=== PATIENT | female | born 1955 | race Caucasian/White ===

== ENCOUNTER → 2017-07-25 16:20 | Outpatient (CLI) | payer SELFPAY ==
[2017-07-29 08:30] LABS: HPV APTIMA, High Risk Negative (Negative)
== END ==
PROVIDERS: Visit Provider Obstetrics & Gynecology
DX: Z12.4 Encounter for screening for malignant neoplasm of cervix (principal)
CPT/HCPCS: 88175; G0145

== ENCOUNTER → 2018-08-01 10:56 | Outpatient (CLI) | payer SELFPAY ==
[2018-08-03 14:17] LABS: HPV APTIMA, High Risk Negative (Negative)
== END ==
PROVIDERS: Referring Provider Obstetrics & Gynecology; Visit Provider Obstetrics & Gynecology
DX: Z12.4 Encounter for screening for malignant neoplasm of cervix (principal)
CPT/HCPCS: 88175; G0145

== ENCOUNTER 2019-05-25 00:52 | Observation (INO) | payer OTHER, SELFPAY ==
[2019-05-25] VITALS (7 sets, daily range): BP systolic 125–140; BP diastolic 68–75; PULSE 50–73; RESP 16–18; TEMP 36.5–36.8; O2SAT 94–98; BMI 29.3; BMI 29.4
--- NOTE | 2019-05-25 00:32 | HP.PCM_ITS ---
Problem List (1) HTN (hypertension) Status: Chronic (2) Palpitations Status: Chronic (3) Hyperlipidemia Status: Chronic (4) Stroke-like symptoms Status: Acute History of Present Illness Date of Admission: 05/25/19 Chief Complaint: numbness The patient is a 63 year old F with a significant history of HTN; HLD; Palpitations who presented at [facility] because of numbness of the lips and tongue. Also she had blurry vision. She denies any weakness or dysphagia. At the time of evaluation her blurry had disappeared. She did not have numbness of her lips. However she had some mild numbness of her tongue. Reportedly her symptoms started after eating seafood (shrimp and fish)which she has ate at other times with no symptoms. Her initial systolic blood pressure at [facility] was 180. Subsequent blood pressure was 171 and 160. Patient was transferred from [facility] emergency department to our hospital because an MRI cannot be done next day (Monday) at [facility]. And patient preferred our hospital for transfer. Past Medical History Past Medical History (Chronic Problems): Chronic Problems HTN (hypertension) (Chronic) Palpitations (Chronic) Hyperlipidemia (Chronic) Allergies No Known Allergies Allergy (Verified 05/25/19 00:29) Home Medications: Ambulatory Orders Medication Instructions Recorded Atenolol 25 mg PO DAILY 05/25/19 Levothyroxine [Synthroid] 100 mcg PO DAILY 05/25/19 Surgical History: - - Lower back surgery with hardware. Lives: With Family Smoking Status: Former smoker Alcohol: None - *Family History Maternal History Items: Heart Disease - Her mother developed congestive heart failure in her old age. Paternal History Items: Heart Disease Review of Systems Constitutional: Denies: Chills, Fever, Weight Change HEENT: Denies: Head Aches, Sinus Congestion, Sinus Drainage Cardiovascular: Denies: Chest Pain, Palpitations Respiratory: Denies: Cough, Shortness of breath at rest, Sputum production Gastrointestinal: Denies: Abdominal Pain, Nausea, Vomiting Genitourinary: Denies: Dysuria Musculoskeletal: Denies: Joint Pain, Joint Tenderness Skin: Denies: Rash, Wounds Neurological: Reports: Blurred vision, Numbness. Denies: Focal weakness, Tingling Psychiatric: Denies: Anxiety, Depression, Homicidal Ideations, Suicidal Ideations Hematologic/ Lymphatic: Denies: Easy Bruising, Easy Bleeding VTE Information - Inpt Only VTE Present on Admission: No VTE Mechan Device Prophylaxis: None VTE Pharm Prophylaxis ordered?: Yes Patient Problems: Active and Suspected Problems Numbness (Acute) Stroke-like symptoms (Acute) - Physical Exam General: Alert, Oriented x3, Cooperative HEENT: Atraumatic, PERRLA, EOMI, Normocephalic Neck: Supple, No JVD, Negative Carotid Bruits Lungs: Clear to auscultation, Normal air movement Cardiovascular: Regular rate, Normal S1, Normal S2, No murmurs Abdomen: Bowel Sounds Present, Soft, Non Tender Extremities: No edema, Capillary Refill Less than 3 Seconds Skin: No rashes, No breakdown Musculoskeletal: No Tenderness to Palpation of Joints or Extremities Neurological: Cranial nerves II-XII grossly intact Psych/Mental Status: Normal Affect, Appropriate Assessment/Plan All Active Problems Numbness (Acute) Stroke-like symptoms (Acute) The patient is a 63 year old F with a significant history of HTN; HLD; Palpitations who presented at [facility] because of numbness on the lips and tongue; and blurry vision continue strokelike symptoms. Stroke-like Frequent NINDS NIH Scale CT of the head at [facility] was unremarkable -Check Hba1c, Lipid level Physical therapy, occupational therapy and speech therapy to work with patient. N.p.o. until bedside swallow eval. Daily aspirin ordered. High intensity statin Permissive hypertension. Control blood pressure with labetalol for systolic blood pressure of more than 220 or diastolic blood pressure of more than 120. 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 CTA head and neck per stroke protocol. IV hydration in the setting of contrast of CT. Echocardiogram ordered. Hypertension Blood pressure was not within goal. At home patient takes home remedies. Permissive hypertension as above. Trend blood pressures. Palpitations Patient take atenolol at home PRN for palpitations. Hyperlipidemia Not on any home medication. Lipitor started. Hypothyroidism s/p radioactive iodine therapy for hyperthyroidism Synthroid continued DVT prophylaxis Subcutaneous Lovenox. Code Visit OBSV E&M: 49026 Initial observation care L2
--- NOTE | 2019-05-25 01:30 | CT_ITS ---
We are attempting to reach an attending provider to discuss findings. An addendum with communication details will be sent when the communication is complete. STUDY: CTA HEAD AND NECK WITH CONTRAST REASON FOR EXAM: Female, 63 years old. Slurred speech and double vision. RADIATION DOSAGE (If Supplied By Facility): CTDIvol = ( 28.46 ) mGy, DLP = ( 1546.83 ) mGycm TECHNIQUE: CT angiography was performed with a multi-detector CT scanner. Data acquisition was obtained from the skull base through the vertex following intravenous administration of 100 ML ISOVUE 370.. MIP images were reconstructed from the axial data set. Post-processing of the angiographic images was performed, with multiplanar reformation and 3D reconstruction. Individualized dose optimization techniques were used for this CT. COMPARISON: No relevant priors. FINDINGS: Normal bilateral petrous carotid arteries. Normal right cavernous carotid artery with a normal supraclinoid bifurcation. Normal left cavernous carotid artery with a normal supraclinoid bifurcation. Normal right A1 segments of the anterior cerebral artery. Normal left A1 segments of the anterior cerebral artery. Normal intact anterior communicating artery (ACOM). Normal bilateral A2 segments of the anterior cerebral arteries. Normal right M1 and M2 segments of the middle cerebral arteries, with a normal M1 bifurcation. Normal left M1 and M2 segments of the middle cerebral arteries, with a normal M1 bifurcation. Normal right posterior communicating artery (PCOM). Normal left posterior communicating artery (PCOM). Normal bilateral vertebral arteries. Normal basilar artery with a normal basilar bifurcation. The visualized bilateral superior cerebellar (SCA) arteries are normal. Normal bilateral P1, P2 and visualized P3 segments of the posterior cerebral arteries. There is no demonstrated aneurysm of the [place] of [place]. There is no demonstrated abnormality of the visualized brain. AORTIC ARCH: Normal visualized aortic arch. Normal origins of the brachiocephalic, left common carotid, and left subclavian arteries. RIGHT CAROTID ARTERIES: Normal right common carotid artery (CCA). Normal right common carotid bulb. Normal origin of the right internal carotid (ICA) artery without a hemodynamically significant stenosis. Normal visualized cervical portion of the right internal carotid artery. Normal origin of the right external carotid artery (ECA). LEFT CAROTID ARTERIES: Normal left common carotid artery (CCA). Normal left common carotid bulb. Normal origin of the left internal carotid (ICA) artery without a hemodynamically significant stenosis. Normal visualized cervical portion of the left internal carotid artery. Normal origin of the left external carotid artery (ECA). VERTEBRAL ARTERIES: Normal bilateral vertebral arteries. CT/CTA Head AND Neck W/ Contrast IMPRESSION: Normal CTA Head and neck with contrast. Electronically Signed: Blayne Rubalcava MD at 2:22 EST Tel , Service support ,
--- NOTE | 2019-05-25 01:30 | MRI_ITS ---
STUDY: MRI BRAIN WITHOUT CONTRAST REASON FOR EXAM: Female, 63 years old. TIA/CVA. Numbness of lips and tongue, blurred vision, symptoms mostly resolved now. TECHNIQUE: Standardized multiplanar fat and water weighted pulse sequences were obtained. COMPARISON: CTA head and neck with contrast 05/25/2019. FINDINGS: No restricted diffusion to suspect acute or subacute ischemic infarct. No focal signal of the mouth is throughout the brain parenchyma in all of the pulse sequences. Normal size of the ventricles and extra-axial spaces for the patient''s age. Normal white matter tracts of the supratentorial brain. Normal bilateral basal ganglia. Normal thalami. There is no extra-axial fluid accumulation. Normal flow voids within the major intracranial circulation suggesting patency by spin echo criteria. Normal sella turcica, pituitary gland, infundibular stalk, optic chiasm and hypothalamus. Normal tectal plate and pineal gland. Normal midbrain, manpreet and medulla. Normal cerebellum. Normal basal cisterns. Normal bilateral temporal bones. Normal bilateral internal auditory canals. No demonstrated orbital abnormality, within the constraints of a routine brain study. Mucosal thickening in the right sphenoid sinus. Normal calvarium and skull base. Normal visualized soft tissue structures. Normal visualized upper cervical spine. MRI/Brain without Contrast IMPRESSION: Normal unenhanced MRI of the brain. Electronically Signed: Tyler Vázquez MD at 10:21 EST , Service support ,
--- NOTE | 2019-05-25 01:30 | ECHOD_ITS ---
Reason For Study: TIA/CVA Procedure This was a 2D Doppler, Color Flow transthoracic echocardiogram. Exam performed portable in patient room. Left Ventricle Normal size and thickness. The estimated ejection fraction is 65 %. Normal diastology for age. No regional wall motion abnormalities noted. Right Ventricle Normal RV size. Normal systolic function. Atria Normal left atrium. Normal right atrium. No doppler evidence for ASD. Bubble contrast study negative for right to left interatrial shunt. Mitral Valve There is no mitral valve stenosis. Trivial mitral valve insufficiency. Tricuspid Valve There is no tricuspid stenosis. Trivial tricuspid valve insufficiency. Normal pulmonary artery pressure. Aortic Valve Trisinus/trileaflet aortic valve. There is no aortic stenosis. No aortic valve insufficiency. Pulmonic Valve There is no pulmonic valvular stenosis. No pulmonic valve insufficiency. Great Vessels Normal aortic root. Pericardium/Pleural No pericardial effusion. Medication Performed a rapid injection of agitated mix of 9 cc saline and 1cc air to assess for atrial septal defect. MMode/2D Measurements & Calculations LVIDd: 4.6 cm IVSd: 0.97 cm Ao root diam: 2.8 cm LVIDs: 2.6 cm LVPWd: 0.87 cm RVDd: 2.5 cm FS: 44.4 % LAV(MOD-bp): 37.2 ml LVAd ap4: 20.3 cm2 SV(MOD-sp4): 35.2 ml LAV(MOD-bp) Indexed: 21.3 ml/m2 EDV(MOD-sp4): 54.3 ml LAV(MOD-sp2): 49.8 ml EDV(sp4-el): 54.2 ml LAV(MOD-sp4): 27.6 ml LVAs ap4: 10.4 cm2 ESV(MOD-sp4): 19.1 ml ESV(sp4-el): 18.3 ml EF(MOD-sp4): 64.9 % EF(sp4-el): 66.1 % SV(sp4-el): 35.8 ml LA A4 area: 13.1 cm2 LA dimension(2D): 3.4 cm RA A4 area: 14.9 cm2 Doppler Measurements & Calculations MV E max baljit: 75.5 cm/sec Lat Peak E' Baljit: 9.6 cm/sec Med Peak E' Baljit: 9.6 cm/sec MV A max baljit: 84.1 cm/sec E/E' lat: 7.9 E/E' med: 7.9 MV E/A: 0.90 Ao V2 max: 148.7 cm/sec LV V1 max: 109.5 cm/sec PA V2 max: 76.4 cm/sec Ao max P.8 mmHg LV V1 max P.8 mmHg Ao V2 mean: 102.9 cm/sec Ao mean P.6 mmHg Ao V2 VTI: 33.2 cm TR max baljit: 233.4 cm/sec TR max P.8 mmHg Interpretation Summary The estimated ejection fraction is 65 %. Normal diastology for age. Bubble contrast study negative for right to left interatrial shunt. Trivial mitral valve insufficiency. Trivial tricuspid valve insufficiency. Ordering Physician: Jaquan Rangel Referring Physician: Jaquan Rangel Performed By: Nandini Correia, RDCS, RVT
[2019-05-25] MEDS: 0.9% Normal Saline 1,000 ML 75 ML IV (02:01)
[2019-05-25] MEDS: 0.9% Saline Lock 10 ML Syringe IV (02:02)
[2019-05-25] MEDS: Aspirin 81 MG TAB.CHEW PO (02:11)
[2019-05-25] MEDS: Atorvastatin Calcium 80 MG Tablet PO (02:12)
[2019-05-25 02:45] LABS: Anion Gap 5 (5-15); BUN 14 mg/dL (7-18); BUN/Creat Ratio 17.6 RATIO (10-20); Calcium,Total 8.2 mg/dL (8.5-10.1); Chloride 113 mmol/L (98-107); EST Glomerular Filtration Rate 78 mL/min (>60); Est Glom Filt Rate - Afr Amer 94 mL/min (>60); Estimated Creatinine Clearance 58.41 ml/min; Glucose 94 mg/dL (74-106); Potassium 3.6 mmol/L (3.5-5.1); Sodium Level 142 mmol/L (136-145)
[2019-05-25 02:48] LABS: Hemoglobin A1c 5.7 % (4.2-6.3)
[2019-05-25] MEDS: Levothyroxine 100 MCG Tablet PO (05:13)
[2019-05-25 05:58] LABS: Cholesterol 258 mg/dL (200); High Density Lipoprotein 60 mg/dL; Triglycerides 152 mg/dL; Very Low Density Lipoprotein 30 mg/dL (5-40)
--- NOTE | 2019-05-25 10:43 | DCINST_ITS ---
- Discharge Diagnoses Current Active Problems: Current Active and Chronic Problems Numbness (Acute) HTN (hypertension) (Chronic) Palpitations (Chronic) Hyperlipidemia (Chronic) Stroke-like symptoms (Acute) Reason(s) for Visit for Discharge Instructions: Numbness, tingling You will use the following diet at home:: Cardiac Your food should be the consistency of: Regular Your liquids should be the consistency of: Regular/Thin Discharge Activity: Return to Normal Activity Instructions: What Is a TIA?, Transient Ischemic Attack (TIA), Cholesterol Medications Additional Instructions: Continue to take all your medications as prescribed. Follow a low salt, low fat diet. Follow up with your primary care doctor within 2 weeks. Allergies/Adverse Reactions: Allergies No Known Allergies Allergy (Verified 05/25/19 00:29) Medications to take at Discharge Acetaminophen [Tylenol Tablet] 650 mg PO Q6H PRN PRN tab 05/25/19 Aspirin [Aspirin, Baby] 81 mg PO DAILY@0800 30 Days #30 tab.chew 05/25/19 Atenolol 25 mg PO DAILY 05/25/19 Atorvastatin Calcium [Lipitor] 80 mg PO QHS 30 Days #30 tab 05/25/19 Levothyroxine [Synthroid] 100 mcg PO DAILY 05/25/19 The following prescriptions were given: Aspirin [Aspirin, Baby] 81 mg PO DAILY@0800 30 Days #30 tab.chew [email or web address] Atorvastatin Calcium [Lipitor] 80 mg PO QHS 30 Days #30 tab Transmission Status: Sent to [facility] Test Results: Test results from this visit will be discussed in further detail at your follow- up appointment, if applicable. Proposed Discharge Date: 05/25/19
--- NOTE | 2019-05-25 10:46 | DS.PCM_ITS ---
Discharge Date and Diagnosis Date of Admission: 05/25/19 Date of Discharge: 05/25/19 - Primary Discharge Diagnosis Active and Suspected Problems TIA Hyperlipidemia - Secondary Discharge Diagnosis Chronic Problems HTN (hypertension) (Chronic) Palpitations (Chronic) Hyperlipidemia (Chronic) Hospital Course and Treatment Imaging Results: Clinical Impression(s) from Imaging Studies Brain MRI 05/25/19 01:30 IMPRESSION: Normal unenhanced MRI of the brain. Electronically Signed: Tyler Vázquez MD at 10:21 EST , Service support , Head/Neck CTA 05/25/19 01:30 IMPRESSION: Normal CTA Head and neck with contrast. Electronically Signed: Blayne Rubalcava MD at 2:22 EST Tel , Service support , ADDENDUM: 05/25/19 0230 IMPRESSION: Normal CTA Head and neck with contrast. N.B. : The above information has been verbally conveyed by Blayne Rubalcava MD to Wilfredo Rangel MD, on 05/25/2019 02:23:37 (ET). Electronically Signed: Blayne Rubalcava MD at 2:22 EST Tel , Service support , ADDENDUM: 05/25/19 0253 IMPRESSION: Normal CTA Head and neck with contrast. N.B. : The above information has been verbally conveyed by Blayne Rubalcava MD to Wilfredo Rangel MD, on 05/25/2019 02:23:37 (ET). Electronically Signed: Blayne Rubalcava MD at 2:22 EST Tel , Service support , None Operations: None Procedures: 2-D Echocardiogram Summary of Care Provided: The patient is a 63 year old F with medical history of hypertension who comes in with complaints of tingling and numbness of her lips and tongue as well as blurred vision. She was seen in the [facility] ED and transferred to [facility]. Her symptoms were most resolved at the time of admission. Her vitals were stable on admission. CTA of the head and neck was negative for acute occlusion. MRI of the head showed no acute infarct. Her total cholesterol was 258, LDL 168, HDL was 60, VLDL was 30. Telemetry shows normal sinus rhythm. Troponins were negative. HbA1c was 5.7. 2D echo did not show any valvular abnormality, EF was normal. She was discharged home on aspirin and statin and educated on low-fat, low-salt diet. She will follow-up with her primary care doctor within 1 to 2 weeks. Subjective: On the day of discharge, patient was seen and examined. Denied any new complaint. She has very mild tingling numbness in the tip of the tongue. No acute events overnight. - Physical Exam Vitals/I&O's: Vital Signs Temp Pulse Resp BP Pulse Ox 98.2 F 57 L 16 140/68 H 98 05/25/19 08:36 05/25/19 08:36 05/25/19 08:36 05/25/19 08:36 05/25/19 08:36 Oxygen Delivery Method Room Air Weight: 72.8 kg Body Mass Index (BMI) 29.3 Intake and Output for Last 24 Hours 05/23/19 05/24/19 05/25/19 23:59 23:59 23:59 Intake Total 872.5 / 872.5 Balance 872.5 / 872.5 General: Alert, Oriented x3, Cooperative, No apparent distress HEENT: Atraumatic, PERRLA, EOMI, Normocephalic Oral: Moist Mucosa Neck: Supple Lungs: Clear to auscultation, Normal air movement Cardiovascular: Regular rate, Regular Rhythm, Normal S1, Normal S2, No murmurs Abdomen: Bowel Sounds Present, Soft, Non Tender, Non-Distended, No Hepato- splenomegaly Extremities: No edema Skin: No rashes, No breakdown Musculoskeletal: No Tenderness to Palpation of Joints or Extremities Lymphatic: No Cervical, Supraclavicular, or Inguinal Adenopathy Neurological: Cranial nerves II-XII grossly intact, Neuro grossly intact Psych/Mental Status: Normal Affect, Appropriate Laboratory Results 05/25/19 02:09: Sodium 142, Potassium 3.6, Chloride 113 H, Carbon Dioxide 24.0, Anion Gap 5, BUN 14, Creatinine 0.80, Estim Creat Clear Calc 58.41, Est GFR (MDRD) Af Amer 94, Est GFR (MDRD) Non-Af 78, BUN/Creatinine Ratio 17.6, Glucose 94, Calcium 8.2 L, Troponin I < 0.015 05/25/19 02:09: Hemoglobin A1c 5.7 05/25/19 05:24: Triglycerides 152, Cholesterol 258 H, LDL Cholesterol 168 H, VLDL Cholesterol 30, HDL Cholesterol 60 05/25/19 05:24: Troponin I < 0.015 05/25/19 07:50: Troponin I < 0.015 Current Medications Acetaminophen (Tylenol) 650 mg PO Q6H PRN PRN PRN Reason: Pain Score 1-10/Temp > 100.7 F Aspirin (Aspirin, Baby) 81 mg PO DAILY@0800 COUNT INCLUDES THE [facility] Last Admin: 05/25/19 02:11 Dose: 81 mg Documented by: Atenolol (Tenormin (Beta [place])) 25 mg PO DAILY COUNT INCLUDES THE [facility] Atorvastatin Calcium (Lipitor) 80 mg PO QHS COUNT INCLUDES THE [facility] Last Admin: 05/25/19 02:12 Dose: 80 mg Documented by: Enoxaparin Sodium (Lovenox) 40 mg SC DAILY COUNT INCLUDES THE [facility] Last Admin: 05/25/19 10:42 Dose: Not Given Documented by: Glucagon () 1 mg IM .X1 PRN PRN Reason: Hypoglycemia Sodium Chloride () 250 mls @ 15 mls/hr IV .[id number] PRN PRN Reason: Saline Flush Sodium Chloride () 250 mls @ 15 mls/hr IV .[id number] PRN PRN Reason: Additional IVPB Infusion Sodium Chloride () 1,000 mls @ 75 mls/hr IV .[id number] COUNT INCLUDES THE [facility] Stop: 05/25/19 14:49 Last Infusion: 05/25/19 10:43 Dose: Infused Documented by: Dextrose (Dextrose 10%-Water) 250 mls @ 999 mls/hr IV .Q16M PRN; Protocol PRN Reason: HYPOGLYCEMIA Labetalol HCl (Trandate) 10 mg IV Q10M PRN PRN Reason: MAINTAIN BP < 220/120 Stop: 05/26/19 01:31 Levothyroxine Sodium (Synthroid) 100 mcg PO DAILY@0600 COUNT INCLUDES THE [facility] Last Admin: 05/25/19 05:13 Dose: 100 mcg Documented by: Melatonin (Melatonin) 3 mg PO QHS PRN PRN PRN Reason: INSOMNIA Ondansetron HCl (Zofran) 4 mg IV Q8H PRN PRN PRN Reason: NAUSEA/VOMITING Sodium Chloride () 10 - 40 ml IV UD PRN PRN Reason: SALINE FLUSH Last Admin: 05/25/19 02:02 Dose: 10 ml Documented by: Discharge Diet: Low fat/ Low Cholesterol, 2000 mg Sodium Diet Discharge Activity: Return to Normal Activity Home Medications: Medications to take at Discharge Acetaminophen [Tylenol Tablet] 650 mg PO Q6H PRN PRN tab 05/25/19 Aspirin [Aspirin, Baby] 81 mg PO DAILY@0800 30 Days #30 tab.chew 05/25/19 Atenolol 25 mg PO DAILY 05/25/19 Atorvastatin Calcium [Lipitor] 80 mg PO QHS 30 Days #30 tab 05/25/19 Levothyroxine [Synthroid] 100 mcg PO DAILY 05/25/19 Following Prescrptions Were Given to Patient: Aspirin [Aspirin, Baby] 81 mg PO DAILY@0800 30 Days #30 tab.chew [facility] Atorvastatin Calcium [Lipitor] 80 mg PO QHS 30 Days #30 tab Transmission Status: Received by [facility] Patient Instructions: Cholesterol Medications, What Is a TIA?, Transient Ischemic Attack (TIA) Disposition: Home Minutes spent on discharge:: 40 Patient Condition:: Stable Medical Necessity - Tobacco Use Smoking Status: Former smoker Tobacco Use: Non-smoker Meaningful Use Info Meaningful Use Diagnoses (Choose all that apply): None applicable Code Visit OBSV E&M: 86749 Observation care discharge
[2019-05-25] MEDS: Atenolol 25 MG Tablet PO (10:51)
== END 2019-05-25 10:37 | disposition home or self-care (01) ==
PROVIDERS: Admitting Provider Hospitalist; Referring Provider Hospitalist; Visit Provider Internal Medicine
DX: G45.9 Transient cerebral ischemic attack, unspecified (principal); E78.5 Hyperlipidemia, unspecified; I10 Essential (primary) hypertension; H53.8 Other visual disturbances; R00.2 Palpitations; E03.9 Hypothyroidism, unspecified; I08.1 Rheumatic disorders of both mitral and tricuspid valves; Z79.899 Other long term (current) drug therapy; Z87.891 Personal history of nicotine dependence
CPT/HCPCS: 36415; 70496; 70498; 70551; 80048; 80061; 83036; 84484; 92610; 93306; 96360; 96361; 97802; 99218; J7030; Q9967; A4216; G0378

== ENCOUNTER → 2020-09-24 11:21 | Outpatient (CLI) | payer OTHER, SELFPAY ==
[2020-09-24 09:08] VITALS: BMI 26.2
--- NOTE | 2020-09-24 09:45 | BRBX_PTH ---
PATIENT: ELISE SHETH LOC: [facility] U#:[id number] AGE/SX: 69/F ROOM: RE09/24/[address]: Dr. John Whitney MD : 1955 BED: DIS: SPEC #: [id number] RECD: 09/24/20 11:08 STATUS: RAISA ELIZ #: [id number] RACQUEL: 09/24/20 09:[address]: John Whitney DEPT: SURGICAL PATHOLOGY RECD BY: Ana Lechuga Tissues: Left breast, NOS Procedures: Surgery Specimen Level IV HEADER OPERATION: Ultrasound-guided needle core biopsy of left breast PRE-OP DIAGNOSIS: Left breast mass TISSUE SUBMITTED: Left breast tissue at 2 o?clock MICROSCOPIC DIAGNOSIS Left breast, ultrasound-guided core biopsy: Hyalinized fibroadenoma. Focal intraductal hyperplasia without atypia. AM:eamon 09/25/2020 MICROSCOPIC DESCRIPTION Slides are reviewed. GROSS DESCRIPTION Received in fixative is one container labeled with the patient name and designated left breast. The specimen consists of multiple elongated fragments of cedillo-yellow fibroadipose tissue that in aggregate measure 1 x 0.8 x 0.1 cm. The entire specimen is submitted in one cassette. / SJ:eamon 09/24/20 TC:5 CPT: 58645
== END ==
PROVIDERS: Referring Provider Surgery; Visit Provider Surgery
DX: N63.20 Unspecified lump in the left breast, unspecified quadrant (principal)
CPT/HCPCS: 88305

== ENCOUNTER → 2021-03-23 08:44 | Outpatient (CLI) | payer SELFPAY, OTHER ==
--- NOTE | 2021-03-23 08:47 | US_ITS ---
STUDY: ULTRASOUND BREAST - LEFT REASON FOR EXAM: Female, 65 years old. Six-month follow-up for prior biopsy. TECHNIQUE: Axial and longitudinal images of the LEFT breast were performed with a high resolution ultrasound transducer. # OF IMAGES: 21 COMPARISON: None. FINDINGS: LEFT Breast: There is a 1 cm x 0.8 cm x 0.4 cm well-defined hypoechoic solid nodule at the 2 o''clock position of the breast at 5 cm from the nipple. A tissue clip marker is seen within. US/Breast Limited Unilateral IMPRESSION: A tissue clip marker is seen within a well-defined hypoechoic solid nodule at the 2 o''clock position of the breast at 5 cm from the nipple. ASSESSMENT CATEGORY: BIRADS Category 2: Benign. A letter regarding these results will be sent to the patient by the facility within 30 days. Electronically Signed: Ludwin Meade MD at 10:28 EST , Service support ,
== END ==
PROVIDERS: PCP Nurse Practitioner Family; Referring Provider Surgery; Visit Provider Surgery
DX: N63.20 Unspecified lump in the left breast, unspecified quadrant (principal)
CPT/HCPCS: 76642